=== PATIENT | female | born 1975 | race Caucasian/White ===

== ENCOUNTER 2020-06-27 11:43 | Outpatient (CLI) | payer OTHER ==
[2020-06-27 22:14] LABS: SARS-CoV-2 MS2 Positive; SARS-CoV-2 N Gene Negative; SARS-CoV-2 S Gene Negative; SARS-CoV-2 by NAA Not Detected (NotDetected); SARS-CoV-2 orf1ab Negative
== END 2020-06-27 11:44 | disposition home or self-care (01) ==
LOC: LABBT 11:43
PROVIDERS: ATTEND Surgery
DX: Z01.812 Encounter for preprocedural laboratory examination (principal); Z20.828 Contact with and (suspected) exposure to other viral communicable diseases; M54.16 Radiculopathy, lumbar region
CPT/HCPCS: 87635; U0003

== ENCOUNTER 2020-07-02 09:45 | Day surgery (SDC) | payer OTHER ==
[~2020-07-02 09:45] MED LIST: Fentanyl 100 MCG/2 ML VIAL ONE
[2020-07-02] MEDS ORDERED: Midazolam HCl 2 mg/2 ml Vial ONE (11:12)
[2020-07-02] MEDS ORDERED: Lidocaine 1% PF 5 ML VIAL ONE (14:33)
[2020-07-02] MEDS ORDERED: PROPOFOL 200 MG/20 ML VIAL ONE (14:33)
[2020-07-02] MEDS ORDERED: Ondansetron PF 4 MG/2 ML Vial ONE (14:33)
--- NOTE | 2020-07-02 15:01 | MRI ---
MRI LUMBAR SPINE: Date: 07/02/2020 PROVIDED CLINICAL HISTORY: Spondylosis. FINDINGS: Five lumbar vertebral bodies are assumed. Lumbar alignment appears normal. Vertebral body heights naomi ear preserved. No focal concerning regional marrow signal abnormality is evident. The conus medullari s is normal in signal and terminates at an appropriate level. At L1-2, there is no significant central canal or foraminal narrowing apparent. At L2-3, there is mild bilateral facet arthrosis without significant central canal or foraminal narro wing apparent. At L3-4, there is disc desiccation and mild loss of disc space height. There is a central disc protru amy producing moderate central canal and bilateral subarticular stenosis. There is bilateral facet a rthritis and a broad based disc bulge, with mild-moderate foraminal narrowing. At L4-5, there is disc desiccation and a broad based disc bulge. There is an annular fissure involvin g the dorsal disc margin. Bulge is asymmetric in the left subarticular and foraminal regions with pot ential for impingement on the traversing left L5 nerve root. There is moderate bilateral foraminal na rrowing. At L5-S1, there is a broad based disc bulge with central disc protrusion. There is bilateral facet ar throsis. There is mild central canal stenosis. There is severe left foraminal narrowing and mild righ t foraminal narrowing. IMPRESSION: Lower lumbar disc and facet degenerative changes producing canal and foraminal narrowing as above. POS: COURT
--- NOTE | 2020-07-02 15:09 | MRI ---
MRI CERVICAL SPINE WITHOUT CONTRAST: Date: 07/02/2020 INDICATION: Spondylosis. Neck pain. Comparison made to MRI cervical spine from [facility] dated 05/26/2016. FINDINGS: Degenerative changes of cervical spine again noted. Anterior osteophytes. Mild anterior wedging at C5 and C6 appear stable from the prior exam. Vertebral bodies otherwise maintain height. Vertebral body signal is normal. Loss of disc space at C5-6 and C6-7. C2-3: Prominent posterior spondylosis with disc bulge and spondylitic change impinge on and mildly c ompress the anterior cord. Findings at this level have progressed significantly since the prior exam. C3-4: Mild disc bulge and spondylosis efface the anterior subarachnoid space. No significant cord im pingement. Mild left foraminal narrowing due to facet and uncinate hypertrophy. C4-5: Prominent disc osteophyte complex is present. This flattens and mildly compresses the anterior cord. The posterior disc and spondylytic changes are more pronounced when compared to 2016 and the c ord compression is more prominent. Left foraminal stenosis and mild right foraminal stenosis due to h ypertrophic change. C5-6: Small central disc osteophyte complex is similar to the prior exam. This does abut the anterio r cord. Bilateral foraminal stenosis due to uncinate hypertrophy, more pronounced on the right. There is a large disc osteophyte complex at C6-7 which has significantly progressed since the prior e xam. There appears to be disc extrusion with both superior and inferior migration. Abnormal signal is seen posterior to the C6 vertebra, at the C6-7 disc, and inferior to the disc space along the C7 aiyana tebra. This mass-like signal compresses the cord at C6-7 resulting in moderate cervical canal stenosi s and cord compression. Mild foraminal narrowing at C6-7. C7-T1: The abnormal signal extending inferiorly from C6-7 extends to the C7-T1 disc and abuts the co rd at C7-T1 disc level. The cervical cord signal is preserved with no evidence of myelomalacia. IMPRESSION: 1. Significant progression of findings at multiple levels when compared to the 2016 exam. A large po sterior disc extrusion and spondylosis at C6-7 with both superior and inferior migration compressing the cord as described above. 2. Posterior disc and spondylosis compress the cord at C4-5 and at C2-3 as described above. Consider further evaluation with CT cervical spine which would enable better assessment of the bony r elated spondylytic changes. POS: OFF
== END 2020-07-02 14:03 | disposition home or self-care (01) ==
LOC: SDC/OP 09:45
PROVIDERS: ATTEND Surgery
DX: M47.812 Spondylosis without myelopathy or radiculopathy, cervical region (principal); M48.02 Spinal stenosis, cervical region; M47.816 Spondylosis without myelopathy or radiculopathy, lumbar region; M48.061 Spinal stenosis, lumbar region without neurogenic claudication; M48.07 Spinal stenosis, lumbosacral region
CPT/HCPCS: 72141; 72148; J2250; J2405; J2704; J3010

== ENCOUNTER 2020-07-18 12:23 | Outpatient (CLI) | payer OTHER ==
--- NOTE | 2020-07-18 13:09 | CT ---
EXAM: CT cervical spine PROVIDED CLINICAL HISTORY: Cervical radiculopathy. Patient states having neck pain with tingling down right arm for months. Preo perative evaluation. TECHNIQUE: Contiguous axial CT images are obtained through the cervical spine from the skull base to the T3-4 le lorenzo. Sagittal and coronal reformatted images are provided. COMPARISON: MRI cervical spine 07/02/2020 FINDINGS: There is straightening to slight reversal of the normal cervical lordotic curvature which was also se en on MRI cervical spine and may related to positioning or muscle spasm. Degenerative changes are again seen within the cervical spine. Vertebral body heights are within normal limits. No fracture or traumatic subluxation is seen. C2-3: Disc osteophyte complex is present which narrows the ventral subarachnoid space. No significant neural foraminal narrowing is present. C3-4: Mild disc osteophyte complex narrowing the ventral subarachnoid space. Right neural foramen is patent, but there is mild left-sided neural foraminal narrowing. C4-5: Disc osteophyte complex with central disc protrusion. This narrows the ventral subarachnoid spa ce with flattening of the anterior aspect of the spinal cord. Moderate left and mild right-sided neural foraminal narrowing is seen. C5-6: Loss of intervertebral disc height. Broad-based disc osteophyte complex is present. Uncinate pr ocess hypertrophy is present at this level. There is mild narrowing of the central spinal canal with flattening of the anterior aspect of the spinal cord. There is moderate bilateral neural foramin al narrowing primarily based on bony encroachment. C6-7: Loss of intervertebral disc height. There is artifact through this level which limits evaluatio n. There is a disc osteophyte complex with what appears to be central disc extrusion less well evaluated on this exam. There is at least moderate narrowing of the central spinal canal at the C6-7 level. Mild right and mild to moderate left-sided neural foraminal narrowing is present. C7-T1: Central canal is not well evaluated due to artifact through this region. Left neural foramen a ppears patent. There is mild right-sided neural foraminal narrowing. No prevertebral soft tissue swelling apparent. A pleural-based nodular density is seen posteriorly in the right upper lobe. IMPRESSION: 1. Multilevel degenerative changes in the cervical spine better visualized on MRI cervical spine on 1 09/01/2019. 2. Straightening to slight reversal of the normal cervical lordotic curvature, but no fracture or sub luxation is seen involving the cervical spine. 3. Pleural-based nodular density posterior right upper lobe. Follow-up CT thorax in 6 months is recom mended.
== END 2020-07-18 12:24 | disposition home or self-care (01) ==
LOC: BICCT 12:23
PROVIDERS: ATTEND Surgery
DX: M47.22 Other spondylosis with radiculopathy, cervical region (principal); M48.02 Spinal stenosis, cervical region; R91.8 Other nonspecific abnormal finding of lung field
CPT/HCPCS: 72125